=== PATIENT | male | born 1995 | race Caucasian/White ===

== ENCOUNTER 2017-03-14 20:32 | Emergency (ER) | payer MEDICAID ==
[2017-03-14 20:46] VITALS: BP 126/78; BMI 29.1
[2017-03-14] MEDS ORDERED: XYLOCAINE 1 % (PLAIN) ONE (21:05)
--- NOTE | 2017-03-14 21:09 | DR.GENAD ---
HPI - PCP Primary Care Physician: nfd - Complaint/Symptoms Chief Complaint Doctors Comments: Mother complains of left ingrown toe nail for the past two months. State he is a student at [employer] and studing to be a [employer] WORK[employer] and they saw his foot and placed him on antibiotics but they were not helping. He went to [place] today to have his toe nail removed but the doctor was called to an emergency and the other doctor would not remove his toe nail. Mother states he cannot go back to [place] until his toe nail is removed because they said they would not be responsible for his health since it is so bad. Patient denies fever, chills, nausea or vomiting. States he had a tetanus shot about 2-3 months ago. He is taking antibiotics but they do not know the name. Chief Complaint:: left great toe ingrown toenail for 1 1/2 months Self Treatment fo Chief Complaint: currently taking keflex for one week now - Nurses notes reviewed Nurses Notes Review: Yes - Source History Provided: Patient, Parent - Mode of Arrival Mode of Arrival: Ambulatory - Timing Onset of Chief Complaint: 02/02/17 Came on: Gradually - Duration Duration: Constant How lon Duration: Weeks - Location Location: left great toe - Severity Severity: Moderate - Modifying Factors Worsens:: walking Improves:: nothing PMH - PMH Past Medical History: No Past Medical History: Asthma Past Surgical History: Yes Surgical History: Tonsillectomy Past Surgical History Comment: reconstructive surg of left eardrum, adnoids - Family History History of Family Medical Conditions: No Family Medical History: Diabetes Mellitus, Cancer, [place], Hypertension - Social History Does patient currently use any type of tobacco product: No Have you used tobacco products in the last 12 months: No Type of Tobacco Use: None Does any household member use tobacco: No Alcohol Use: None Do you use any recreational Drugs:: No Lives Where: Home - infectious screening Have you traveled outside the country in the last 6 months?: No Isolation: Standard ROS - Review of Systems Constitutional: No Symptoms Reported. negative: See HPI, Chills, Diaphoresis, Fever, Malaise, Weakness, Irritable, Fatigue, Loss of Appetite, Other Eyes: No Symptoms Reported ENTM: No Symptoms Reported. negative: See HPI, Ear Pain, Ear Discharge, Pulling on Ears, Hearing Loss, Nose Pain, Nose Discharge, Epistaxis, Nose Congestion, Mouth Pain, Mouth Swelling, Loose Teeth, Drooling, Throat Pain, Throat Swelling, Ear Foreign Body Respiratoy: No Symptoms Reported Cardiovascular: No Symptoms Reported Gastrointestinal/Abdominal: No Symptoms Reported. negative: See HPI, Abdominal Pain, Constipation, Diarrhea, Nausea, Vomiting, Food Intolerance, Other Genitourinary: No Symptoms Reported. negative: See HPI, Discharge, Dysuria, Frequency, Hematuria, Pain, Bleeding, Other Neurological: No Symptoms Reported Musculoskeletal: No Symptoms Reported, Left, Foot Integumentary: No Symptoms Reported, Wound (toe nail ingrown) Hematologic/Lymphatic: negative: No Symptoms Reported, See HPI, Anemia, Blood Clots, Easy Bleeding, Easy Bruising, Swollen Glands, Lymphadenopathy, Other Endocrine: No Symptoms Reported Psychiatric: No Symptoms Reported PE - Vital Signs Vitals: Temperature 98.7 F Pulse Rate 79 Respiratory Rate 16 Blood Pressure 126/78 O2 Sat by Pulse Oximetry 97 - General Limitations: No Limitations General Appearance: Alert, In Distress (mild) - Head Head Exam: Normal Inspection, Atraumatic, Normocephalic - Eyes Eye exam: Normal Appearance, PERRL, EOMI. negative: Scleral Icterus, Conjunctival Injection, Nystagmus, Miosis, Mydrasis, Periorbital Swelling, Periorbital Tenderness, Other - ENT ENT Exam: Normal Exam, Normal Oropharynx, Normal External Ear Exam, Mucous Membranes Moist, TM's Normal Bilaterally External Ear Exam: Normal External Inspection TM/Canal Exam: Bilateral Normal Nose Exam: Normal Nose Exam Mouth Exam: Normal Inspection Throat Exam: Normal Inspection - Neck Neck Exam: Normal Inspection, Full ROM, Trachea Midline. negative: Tenderness, Meningismus, Lymphadenopathy, Thyromegaly, Other - Chest Chest Inspection: Normal Inspection, Symmetric Chest Wall Rise - Respiratory Respiratory Exam: Normal Lung Sounds Bilat Respiratory Exam: Bilateral Clear to Auscultation - Cardiovascular Cardiovascular Exam: Regular Rate, Normal Rhythm, Normal Heart Sounds - Abdominal Exam Abdominal Exam: Normal Inspection, Normal Bowel Sounds, Soft Abdominal Tenderness: negative: RUQ, RLQ, LUQ, LLQ, Epigastrium, Suprapubic, Diffuse, Mild, Moderate, Severe, Other - Extremities Extremities Exam: Normal Inspection, Full ROM, Tenderness (left great toe with ingrown toe nail both side with granulation tissue, thick), Normal Capillary Refill - Back Back Exam: Normal Inspection, Full ROM. negative: Tenderness, (R) CVA Tenderness, (L) CVA Tenderness, Muscle Spasm, Paraspinal Tenderness, Vertebral Tenderness, Rashes, (R) Sciatic Notch Tenderness, (L) Sciatic Notch Tendern, (R ) Straight Leg Raise, (L) Straight Leg Raise, Other - Neurologic Neurological Exam: Alert, Oriented X3, CN II-XII Intact, Reflexes Normal. negative: Normal Gait (gait not tested) - Psychiatric Psychiatric Exam: Normal Affect, Normal Mood - Skin Skin Exam: Warm, Dry, Intact, Normal Color, Erythema Procedures - Procedure Comments Procedures: Left great toe nail removed afte infiltrating the sking with 1% lidocaine after sterile wash and soak. Toe nail removed with blunt dissection without problems. EBL: 3 ml. Complications: none. Patient with increased granulation tissue lateral nail removed. sterile dressing applied after bleeding controlled with [place]. Patient tolerated procedure well. 10ml lidicaiane used for bilateral toe block (3ml each side of toe) - Diagnosis Discharge Problem: Ingrown nail of great toe of left foot, Cellulitis of toe - Discharge Plan Disposition: HOME, SELF-CARE Condition: Stable Prescriptions: Acetaminophen/Codeine Tab [TYLENOL w/CODEINE #3 (300 MG/30 MG) *] 1 tab PO Q4- 6H PRN #30 tab PRN Reason: Pain Cephalexin [KEFLEX CAP 500 MG *] 500 mg PO TID #30 cap - Follow ups/Referrals Follow ups/Referrals: [facility],None [Primary Care Provider] - 3 days IRIS ANEGL [STAFF PHYSICIAN] - 3 days Nehemiah Aparicio [STAFF PHYSICIAN] - 3 days - Instructions Instructions: Ingrown Toenail, Cellulitis
[2017-03-14] MEDS ORDERED: SILVER NITRATE STICK APPL ONE (21:54)
[2017-03-14] MEDS ORDERED: NEOSPORIN OINT ONE (21:56)
== END 2017-03-14 22:41 | disposition home or self-care (01) ==
LOC: ER 20:32
PROC: 0HBRXZX Excision of Toe Nail, External Approach, Diagnostic (ICD-10-PCS; principal; 2017-03-14)
DX: L03.032 Cellulitis of left toe (principal); L60.0 Ingrowing nail
CPT/HCPCS: 11750; 99282; J2001